=== PATIENT | female | born 1965 | race Caucasian/White ===

== ENCOUNTER 2018-01-16 19:19 | Emergency (ER) | payer OTHER ==
[~2018-01-16 19:19] MED LIST: ACETAMINOPHEN-COD #3 PO; ALPRAZOLAM 0.5 MG PO; ALPRAZOLAM XR0.5 MG PO; ATIVAN1 M1 PO; ATIVAN1 MG PO; AUGMENTIN 875 M1 TAB PO; CIPRO 500MG TA500 MG PO; DAILY MULTIPLE1 EACH PO; ESCITALOPRAM OX10 MG PO; ESCITALOPRAM10 MG PO; ESCITALOPRAM20 MG PO; FLEXERIL10 MG PO; HYDROXYZINE HCL25 MG PO; KEFLEX250 M1 PO; LISINOPRIL-HCT1 EAC2 PO; LISINOPRIL-HYDR1 TA1 PO; LISINOPRIL10 MG PO; LORAZEPAM1 MG PO; MECLIZINE HCL25 MG PO; MEDROL DOSEPAK1 PAC PO; MOBIC7.5 MG PO; MULTIVITAMIN1 TAB PO; OXYCODONE5 M1 PO; PERCOCET 325 MG1 TA2 PO; PERCOCET 7.5-31 EACH PO; PRINIVIL 5MG5 MG PO; PYRIDIUM100 MG PO; TIZANIDINE HCL4 MG PO; TRAMADOL HCL50 M1 PO; TRAMADOL HYDROC50 MG PO; TRAMADOL50 MG PO; VICTOZA6 MG/ML SC; WELLBUTRIN XL300 M2 PO
[2018-01-16 19:28] VITALS: BP 124/81
== END 2018-01-16 23:45 | disposition admitted as inpatient to this hospital (09) ==
LOC: ERH 19:19
DX: F10.20 Alcohol dependence, uncomplicated (principal)
CPT/HCPCS: 80307; G0480

== ENCOUNTER 2018-01-16 23:42 | Emergency (ER) | payer OTHER | END 2018-01-16 23:59 | disposition admitted as inpatient to this hospital (09) | LOC: ERH 23:42 | DX: F10.20 Alcohol dependence, uncomplicated (principal) ==